=== PATIENT | male | born 1995 | race Asian ===

== ENCOUNTER 2016-12-25 16:46 | Emergency (ER) | payer OTHER ==
[2016-12-25 16:55] VITALS: BP 109/66; PULSE 57; RESP 16; TEMP 98.1; O2SAT 100
--- NOTE | 2016-12-25 17:04 | EDPHY ---
H & P Time Seen by Provider: 12/25/16 16:55 HPI/ROS: CHIEF COMPLAINT: Odontalgia HISTORY OF PRESENT ILLNESS: 21-year-old immunocompetent male complaining of right mandibular molar pain and mandibular swelling since this morning. No fever or chills. No trismus or drooling. No hot potato voice. No nuchal rigidity. No floor of mouth pain PHYSICAL EXAM (Prior to examination, patient consented to physical exam, hands were washed and my usual and customary physical exam procedures followed) 1) GENERAL: Well-developed, well-nourished, alert and oriented. Appears to be in no acute distress. 2) HEAD: Normocephalic 3) HEENT: sclera anicteric. There is minimally appreciable soft tissue swelling right mandibular region. Tooth 29 is tender to percussion. There is no evidence of periapical abscess. Floor of mouth soft with no evidence of Lev's angina. Submandibular and submental spaces are soft. 4) LUNGS: Breathing comfortably. Smoking Status: Current every day smoker Constitutional: Initial Vital Signs Temperature (C) 36.7 C 12/25/16 16:50 Heart Rate 57 L 12/25/16 16:50 Respiratory Rate 16 12/25/16 16:50 Blood Pressure 109/66 12/25/16 16:50 O2 Sat (%) 100 12/25/16 16:50 O2 Delivery Mode Room Air Allergies/Adverse Reactions: No Known Allergies Allergy (Verified 12/25/16 16:52) Home Medications: Medication Instructions Recorded No Home Meds 04/30/15 Amoxicillin Trihydrate 500 mg PO Q8 7 Days 12/25/16 [Amoxicillin 500mg cap] Ibuprofen [Motrin (*)] 800 mg PO Q6 #15 tab 12/25/16 MDM/Departure - MDM ED Course/Re-evaluation: Patient has no evidence of Lev's angina or deep space infection. I do not think that imaging studies indicated. Recommend follow up with dentist and given referral information. Started on amoxicillin with usual and customary dental precautions instructions provided - Depart Disposition: Home, Routine, Self-Care Clinical Impression: Odontalgia Condition: Good Instructions: Toothache (ED) Additional Instructions: Return to the ER immediately if you cannot swallow, have drooling, fevers, neck stiffness, cannot open your jaw, or any other symptoms that concern you. Prescriptions: Amoxicillin Trihydrate [Amoxicillin 500mg cap] 500 mg PO Q8 7 Days Ibuprofen [Motrin (*)] 800 mg PO Q6 #15 tab Referrals: [facility] [Outside] - As per Instructions [facility] [Outside] - As per Instructions [facility] [Outside] - As per Instructions [facility] [Outside] - As per Instructions [facility] [Outside] - As per Instructions
== END 2016-12-25 17:20 | disposition home or self-care (01) ==
DX: K08.89 Other specified disorders of teeth and supporting structures (principal); F17.200 Nicotine dependence, unspecified, uncomplicated

== ENCOUNTER 2017-01-12 09:42 | Emergency (ER) | payer OTHER ==
[2017-01-12 09:46] VITALS: TEMP 97.9
--- NOTE | 2017-01-12 09:48 | EDPHY ---
H & P Stated Complaint: tooth ache Time Seen by Provider: 01/12/17 09:47 HPI/ROS: CHIEF COMPLAINT: [ ] HISTORY OF PRESENT ILLNESS: [Need 4: Location, Duration, Severity, Quality, Context, Timing Modifying Factors, Associated S&S] REVIEW OF SYSTEMS: A comprehensive 10 point review of systems is otherwise negative aside from elements mentioned in the history of present illness. Source: Patient - Personal History Current Tetanus/Diphtheria Vaccine: Yes Current Tetanus Diphtheria and Acellular Pertussis (TDAP): Yes - Medical/Surgical History Hx Asthma: No Hx Chronic Respiratory Disease: No Hx Diabetes: No Hx Cardiac Disease: No Hx Renal Disease: No Hx Cirrhosis: No Hx Alcoholism: No Hx HIV/AIDS: No Hx Splenectomy or Spleen Trauma: No Other PMH: tonsilectomy - Social History Smoking Status: Current every day smoker - Physical Exam Exam: General Appearance: [Alert, no distress] Eyes: [Pupils equal and round no pallor or injection] ENT, Mouth: [Mucous membranes moist] Respiratory: [There are no retractions, lungs are clear to auscultation] Cardiovascular: [Regular rate and rhythm] Gastrointestinal: [Abdomen is soft and nontender, no masses, bowel sounds normal] Neurological: [A&O, normal motor function, normal sensory exam, normal cranial nerves] Skin: [Warm and dry, no rashes] Musculoskeletal: [Neck is supple nontender] Extremities: [symmetrical, full range of motion] Psychiatric: [Patient is oriented X 3, there is no agitation] Constitutional: Initial Vital Signs Temperature (C) 36.6 C 01/12/17 09:45 Heart Rate 62 01/12/17 09:45 Respiratory Rate 14 01/12/17 09:45 Blood Pressure 129/63 H 01/12/17 09:45 O2 Sat (%) 97 01/12/17 09:45 O2 Delivery Mode Room Air Allergies/Adverse Reactions: No Known Allergies Allergy (Verified 12/25/16 16:52) Home Medications: Medication Instructions Recorded No Home Meds 04/30/15 Amoxicillin Trihydrate 500 mg PO Q8 7 Days 12/25/16 [Amoxicillin 500mg cap] Ibuprofen [Motrin (*)] 800 mg PO Q6 #15 tab 12/25/16 Departure - Departure Referrals: NONE *PRIMARY CARE P,. [Primary Care Provider] - As per Instructions
--- NOTE | 2017-01-12 09:57 | EDPHY ---
H & P Stated Complaint: tooth ache Time Seen by Provider: 01/12/17 09:47 HPI/ROS: CHIEF COMPLAINT: Dental pain HISTORY OF PRESENT ILLNESS: The patient presents to the ED with complaints of recurrent dental pain. The patient was seen in the emergency department approximately 1 month ago with similar complaints. He has had a temporary filling placed on his #29 tooth for several months. He is not seen a dentist for follow-up. The patient denies fever, trismus or additional complaints. REVIEW OF SYSTEMS: A comprehensive 10 point review of systems is otherwise negative aside from elements mentioned in the history of present illness. Source: Patient Exam Limitations: No limitations - Personal History Current Tetanus/Diphtheria Vaccine: Yes Current Tetanus Diphtheria and Acellular Pertussis (TDAP): Yes - Medical/Surgical History Hx Asthma: No Hx Chronic Respiratory Disease: No Hx Diabetes: No Hx Cardiac Disease: No Hx Renal Disease: No Hx Cirrhosis: No Hx Alcoholism: No Hx HIV/AIDS: No Hx Splenectomy or Spleen Trauma: No Other PMH: tonsilectomy - Social History Smoking Status: Current every day smoker - Physical Exam Exam: General: No acute distress Head: Normocephalic atraumatic ENT: Temporary filling on the #29 tooth. No evidence of trismus, apical abscess, submandibular swelling or additional significant intraoral infection Neck: No lymphadenopathy Lungs: Clear to auscultation Constitutional: Initial Vital Signs Temperature (C) 36.6 C 01/12/17 09:45 Heart Rate 62 01/12/17 09:45 Respiratory Rate 14 01/12/17 09:45 Blood Pressure 129/63 H 01/12/17 09:45 O2 Sat (%) 97 01/12/17 09:45 O2 Delivery Mode Room Air Allergies/Adverse Reactions: No Known Allergies Allergy (Verified 12/25/16 16:52) Home Medications: Medication Instructions Recorded No Home Meds 04/30/15 Amoxicillin Trihydrate 500 mg PO Q8 7 Days 12/25/16 [Amoxicillin 500mg cap] Ibuprofen [Motrin (*)] 800 mg PO Q6 #15 tab 12/25/16 Amoxicillin Trihydrate 500 mg PO Q8 #21 cap 01/12/17 [Amoxicillin] Ibuprofen [Motrin (*)] 600 mg PO QID PRN #30 tab 01/12/17 Medical Decision Making ED Course/Re-evaluation: The patient presents to the ED with persistent dental pain. He will be provided a prescription for ibuprofen and amoxicillin. The patient is advised to follow up with a dentist on Friday for further evaluation Departure - Departure Disposition: Home, Routine, Self-Care Clinical Impression: Pain, dental Condition: Good Instructions: Toothache (ED) Additional Instructions: 1. Ibuprofen as needed for pain. 2. Take antibiotics as directed. 3. Please follow up with a dentist on Friday. Referrals: [facility] [Outside] - As per Instructions
[2017-01-12 10:06] VITALS: BP 132/70; PULSE 86; RESP 16; O2SAT 96
== END 2017-01-12 10:01 | disposition home or self-care (01) ==
DX: K08.89 Other specified disorders of teeth and supporting structures (principal); F17.200 Nicotine dependence, unspecified, uncomplicated

== ENCOUNTER 2017-10-27 14:39 | Emergency (ER) | payer OTHER ==
[2017-10-27 14:46] VITALS: TEMP 98.2
--- NOTE | 2017-10-27 15:03 | EDPHY ---
General Time Seen by Provider: 10/27/17 15:03 Narrative: CHIEF COMPLAINT: Foot pain HISTORY OF PRESENT ILLNESS: Patient complains of left ankle pain status post injury. This occurred on Friday while dancing. He said he landed awkwardly, rolling his ankle into inversion. Sudden onset of pain over the outside of the left ankle and foot. No tenderness of the heel. No tenderness of the knee. It is minimal at rest. Worse when he attempts to bear weight but he is able to do so. No numbness or tingling. No radiating pain. No other associated complaints or modifying factors. REVIEW OF SYSTEMS: Ten systems reviewed and are negative unless otherwise noted in the HPI PCP: None SPECIALISTS: None PAST MEDICAL HISTORY: ADD PAST SURGICAL HISTORY: No recent surgeries SOCIAL HISTORY: Nonsmoker. Lives and attends school here locally. Originally from [facility] FAMILY HISTORY: Noncontributory EXAMINATION General Appearance: Alert, no distress Head: normocephalic, atraumatic Cardiovascular: Regular rate. Symmetric DP and PT pulses 2+. Neurological: A&O, nonfocal, antalgic but steady gait. Strength of the ankles symmetric. Normal proprioception left great toe. No footdrop on the left. Skin: Warm and dry, no rash. No petechiae or purpura. No ecchymosis of the left ankle and foot Extremities: Tenderness of the left lateral malleolus and left proximal midfoot. There is no tenderness of the base of the 5th metatarsal. No tenderness of the left calcaneus with from palpation. No tenderness of the left proximal fibula. Range of motion of the ankles symmetric. Neurovascular intact distal to left ankle pain Psychiatric: Mood and affect normal DIFFERENTIAL DIAGNOSES: Including but not limited to sprain, strain, fracture, dislocation, subluxation MDM: 3:05 p.m. Acute injury to the left ankle on Friday. This was an inversion injury. Minimal bony tenderness on exam. There is no tenderness of the calcaneus. There is no tenderness of the proximal fibula. He is neurovascular intact. X-ray pending. 3:15 p.m. X-ray as read by me reveals no acute abnormalities. Suspect ankle sprain. He is able to walk on this with minimal difficulty. He has mild pain with. I will place him in an air splint. Discharged home with instructions to ice and elevate often. Instructions for ibuprofen every 6 hr as documented. I provided the on-call orthopedist from to follow up with his pain does not resolve over the next few days. He has ED precautions for any worsening pain, numbness, tingling. He is comfortable with this plan and discharged home stable condition 3:25 p.m. X-ray has been read as negative by radiologist SUPERVISION: This patient was independently evaluated without direct involvement of or examination by the attending physician. - Diagnostics Imaging Results: Imaging Impressions Ankle X-Ray 10/27/17 14:47 Impression: Negative left ankle series. - History Smoking Status: Current every day smoker - Objective Vital Signs: Initial Vital Signs Temperature (C) 98.2 F 10/27/17 14:45 Heart Rate 56 L 10/27/17 14:45 Respiratory Rate 16 10/27/17 14:45 Blood Pressure 114/80 10/27/17 14:45 O2 Sat (%) 98 10/27/17 14:45 O2 Delivery Mode Room Air Allergies/Adverse Reactions: No Known Allergies Allergy (Verified 10/27/17 14:44) Home Medications: Medication Instructions Recorded Adderall 10 MG (*) 10/27/17 Departure - Departure Disposition: Home, Routine, Self-Care Clinical Impression: Ankle sprain Qualifiers: Encounter type: initial encounter Involved ligament of ankle: unspecified ligament Laterality: left Qualified Code(s): S93.402A - Sprain of unspecified ligament of left ankle, initial encounter Condition: Good Instructions: Ankle Sprain (ED), Ankle Stirrup Splint (ED) Additional Instructions: 1. Ice and elevate the extremities often 2. Ibuprofen 600 mg every 6-8 hours as needed 3. Contact the on-call orthopedist as provided for definitive care later this week 4. ED precautions as discussed 5. Weightbearing as tolerated, advancing slowly as tolerated Referrals: Mary Kendall MD [Medical Doctor] - As per Instructions Stand Alone Forms: School Excuse
[2017-10-27 15:25] VITALS: BP 118/78; PULSE 78; RESP 18; O2SAT 97
== END 2017-10-27 15:25 | disposition home or self-care (01) ==
DX: S93.402A Sprain of unspecified ligament of left ankle, initial encounter (principal); X50.9XXA Other and unspecified overexertion or strenuous movements or postures, initial encounter; Y99.8 Other external cause status; Y93.41 Activity, dancing

== ENCOUNTER 2017-12-23 12:53 | Emergency (ER) | payer OTHER ==
--- NOTE | 2017-12-23 14:23 | EDPHY ---
H & P Time Seen by Provider: 12/23/17 13:51 HPI/ROS: CHIEF COMPLAINT: Sore throat x2 days HISTORY OF PRESENT ILLNESS: 22-year-old immunocompetent male complaining of sore throat, flu-like symptoms, fever, for the past 2 days. No change in voice. No cough. No abdominal pain. No chest pain. No dyspnea. No testicular pain. No urinary abnormality. PRIMARY CARE PROVIDER: REVIEW OF SYSTEMS: A ten point review of systems was performed and is negative with the exception of the items mentioned in the HPI PAST MEDICAL & SURGICAL HISTORY: No pertinent medical or surgical history SOCIAL HISTORY: Nonsmoker PHYSICAL EXAM (Prior to examination, patient consented to physical exam, hands were washed and my usual and customary physical exam procedures followed) 1) GENERAL: Well-developed, well-nourished, alert and oriented. Appears to be in no acute distress. 2) HEAD: Normocephalic, atraumatic 3) HEENT: Pupils equal, round, reactive to light bilaterally. Sclera anicteric. Oropharynx: Bilateral tonsils are symmetrically enlarged with white exudate. No trismus, no drooling, no hot potato voice, note Ears bilaterally with normal tympanic membranes. 4) NECK: Full range of motion, no meningeal signs. Positive adenopathy 5) LUNGS: Clear auscultation bilaterally, no wheezes, no rhonchi, no retractions. 6) HEART: Regular rate and rhythm, no murmur, no heave, no gallop. 7) ABDOMEN: No guarding, no rebound, no focal tenderness, negative McBurney's, negative Higgins's, negative Rovsing's, negative peritoneal sign, 8) MUSCULOSKELETAL: Moving all extremities, no focal areas of tenderness, no obvious trauma. No peripheral edema or discoloration. 9) BACK: No CVA tenderness, no midline vertebral tenderness, no fluctuance, no step-off, no obvious trauma, no visual or palpable abnormality. 10) SKIN: No rash, no petechiae. 11) Psychiatric: Patient is oriented X 3, there is no agitation. DIFFERENTIAL DIAGNOSIS: In no particular order including but not limited to strep pharyngitis, peritonsillar abscess, meningitis, mononucleosis, viral pharyngitis Smoking Status: Current every day smoker Constitutional: Initial Vital Signs Temperature (C) 36.6 C 12/23/17 13:05 Heart Rate 73 12/23/17 13:05 Respiratory Rate 16 12/23/17 13:05 Blood Pressure 122/86 H 12/23/17 13:05 O2 Sat (%) 97 12/23/17 13:05 O2 Delivery Mode Room Air Allergies/Adverse Reactions: No Known Allergies Allergy (Verified 12/23/17 13:05) Home Medications: Medication Instructions Recorded Adderall 10 MG (*) 10/27/17 Penicillin V Potassium [Pen Vk] 500 mg PO Q6 10 Days tab 12/23/17 MDM/Departure - MDM ED Course/Re-evaluation: High clinical suspicion for strep pharyngitis. Although the patient is noted to have a negative rapid strep screen performed by the triage nurse, I have recommended empiric treatment based on his signs and symptoms. Treatment will be Pen-VK. Doubt meningitis. Doubt peritonsillar abscess. Doubt retropharyngeal abscess or phlegmon. He feels comfortable being discharged. Usual and customary discharge precautions and instructions provided. Care of patient under supervision of secondary supervising physician Dr Chahal . - Depart Disposition: Home, Routine, Self-Care Clinical Impression: Strep pharyngitis Condition: Good Instructions: Pharyngitis (ED) Additional Instructions: Return to the ER immediately if you cannot swallow, have drooling, fevers, neck stiffness, cannot open your jaw, or any other symptoms that concern you. Prescriptions: Penicillin V Potassium [Pen Vk] 500 mg PO Q6 10 Days tab Referrals: RIYA Garay. [Clinic] - 2-3 days, call for appt.
[2017-12-23 14:31] VITALS: BP 125/78
== END 2017-12-23 14:30 | disposition home or self-care (01) ==
DX: J02.0 Streptococcal pharyngitis (principal); F17.200 Nicotine dependence, unspecified, uncomplicated

== ENCOUNTER 2017-12-24 23:32 | Emergency (ER) | payer OTHER ==
[2017-12-24] MEDS ORDERED: NS 1,000 ML IV ONE (23:40)
[2017-12-24] MEDS ORDERED: KETOROLAC 15 MG/1 ML SDV IVP ONE (23:40)
--- NOTE | 2017-12-24 23:47 | EDPHY ---
H & P Time Seen by Provider: 12/24/17 23:35 HPI/ROS: CHIEF COMPLAINT: "My throat still hurts" HISTORY OF PRESENT ILLNESS: 22-year-old immunocompetent male seen by myself in emergency department yesterday for complaints of 2 days of sore throat, diagnosed with strep pharyngitis based on his presenting signs and symptoms, namely bilaterally enlarged exudate of tonsils which were symmetrical with no signs of peritonsillar abscess. That time he was prescribed Pen-VK and Medrol Dosepak. He returns to the ER complaining of continued symptoms. They have not worsened. No change in voice. He is able tolerate oral intake albeit with pain. No Tylenol or acetaminophen use by patient. Continued intermittent fever and chills. Continued adenopathy. REVIEW OF SYSTEMS: A ten point review of systems was performed and is negative with the exception of the items mentioned in the HPI PAST MEDICAL & SURGICAL HISTORY: No pertinent medical or surgical history SOCIAL HISTORY: student PHYSICAL EXAM (Prior to examination, patient consented to physical exam, hands were washed and my usual and customary physical exam procedures followed) 1) GENERAL: Well-developed, well-nourished, alert and oriented. Appears to be in no acute distress. 2) HEAD: Normocephalic, atraumatic 3) HEENT: Pupils equal, round, reactive to light bilaterally. Sclera anicteric. Oropharynx: Bilaterally enlarged, exudate of tonsils with no pointing of the uvula, no signs of peritonsillar abscess, no hot potato voice, no trismus no drooling. Dry mucous membranes. Ears bilaterally with normal tympanic membranes. 4) NECK: Full range of motion, no meningeal signs. Positive submandibular adenopathy left greater than right, tender. 5) LUNGS: Clear auscultation bilaterally, no wheezes, no rhonchi, no retractions. 6) HEART: Regular rate and rhythm, no murmur, no heave, no gallop. 7) ABDOMEN: No guarding, no rebound, no focal tenderness, negative McBurney's, negative Higgins's, negative Rovsing's, negative peritoneal sign, no splenomegaly no left upper quadrant or left flank pain 8) MUSCULOSKELETAL: Moving all extremities, no focal areas of tenderness, no obvious trauma. No peripheral edema or discoloration. 9) BACK: No CVA tenderness, no midline vertebral tenderness, no fluctuance, no step-off, no obvious trauma, no visual or palpable abnormality. 10) SKIN: No rash, no petechiae. 11) Psychiatric: Patient is oriented X 3, there is no agitation. DIFFERENTIAL DIAGNOSIS: In no particular order including but not limited to peritonsillar abscess, retropharyngeal abscess, meningitis, epiglottitis - Medical/Surgical History Hx Asthma: No Hx Chronic Respiratory Disease: No Hx Diabetes: No Hx Cardiac Disease: No Hx Renal Disease: No Hx Cirrhosis: No Hx Alcoholism: No Hx HIV/AIDS: No Hx Splenectomy or Spleen Trauma: No Other PMH: tonsilectomy - Social History Smoking Status: Current every day smoker Constitutional: Initial Vital Signs Temperature (C) 36.7 C 12/24/17 23:40 Heart Rate 81 12/24/17 23:40 Respiratory Rate 16 12/24/17 23:40 Blood Pressure 131/70 H 12/24/17 23:40 O2 Sat (%) 96 12/24/17 23:40 O2 Delivery Mode Room Air Allergies/Adverse Reactions: No Known Allergies Allergy (Verified 12/24/17 23:42) Home Medications: Medication Instructions Recorded Adderall 10 MG (*) 10/27/17 Penicillin V Potassium [Pen Vk] 500 mg PO Q6 10 Days tab 12/23/17 Medical Decision Making ED Course/Re-evaluation: 11:47 p.m.: I have reviewed this patient's old medical records and familiar with this case. At this time I think that peritonsillar abscess or deep space infection is less than likely in this patient. I will administer IV hydration, IV Toradol, obtain Monospot testing and re-evaluate. 12:31 a.m.: Re-evaluation after IV fluids 1 L and IV Toradol. He is feeling "much better". Discussed his negative Monospot. Doubt meningitis. Doubt deep space infection. Plan will be discharge in the emergency department with usual and customary ENT precautions instructions. He feels comfortable being discharged. Recommend continue taking his medications as prescribed and also stressed the importance of supportive care in the form of Tylenol and Motrin and hydration. Care of patient under supervision of secondary supervising physician Dr Lombardo . - Data Points Laboratory Results: 12/24/17 23:50 Monoscreen NEGATIVE (NEGATIVE) Medications Given: Discontinued Medications Sodium Chloride (Ns) 1,000 mls @ 0 mls/hr IV ONCE ONE PRN Reason: Wide Open Stop: 12/24/17 23:41 Last Admin: 12/24/17 23:49 Dose: 1,000 mls Ketorolac Tromethamine (Toradol) 15 mg IVP EDNOW ONE Stop: 12/24/17 23:41 Last Admin: 12/24/17 23:50 Dose: 15 mg Departure - Departure Disposition: Home, Routine, Self-Care Clinical Impression: Strep pharyngitis Condition: Good Instructions: Strep Throat (ED) Additional Instructions: Keep taking your prescribed medications as directed. Return to the ER immediately if you cannot swallow, have drooling, fevers, neck stiffness, cannot open your jaw, or any other symptoms that concern you. Adult Pain & Fever Control: We recommend Acetaminophen (Tylenol) and Ibuprofen (Motrin,Advil) for pain and fever control. When fever is high or pain severe, both drugs can be used at the same time, but at different intervals. Please note the time differences. Your dose is: Acetaminophen 650mg every 4 to 6 hours Ibuprofen 600mg every 6 hours with food OR Note: do not take Acetaminophen with Hydrocodone (Vicodin, Lortab) or Oycodone (Percocet). These medications also contain Acetaminophen. No more than 3000mg of Acetaminophen should be taken in 24 hours (for an adult). Referrals: Cody Christine MD [Medical Doctor] - 1-2 days without fail
[2017-12-25 01:02] VITALS: BP 127/75
== END 2017-12-25 00:59 | disposition home or self-care (01) ==
DX: J02.0 Streptococcal pharyngitis (principal); F17.200 Nicotine dependence, unspecified, uncomplicated
CPT/HCPCS: 96374; J1885

== ENCOUNTER 2018-05-07 15:34 | Emergency (ER) | payer OTHER ==
[2018-05-07 16:11] VITALS: BP 135/85
--- NOTE | 2018-05-07 16:14 | EDPHY ---
H & P Stated Complaint: Completely stopped taking adderall 2 wks ago. Pt reports BROWN and lack f appt Time Seen by Provider: 05/07/18 15:59 HPI/ROS: CHIEF COMPLAINT: Morning headaches after stopping Adderall HISTORY OF PRESENT ILLNESS: 22-year-old male history of attention deficit hyperactivity disorder, on daily Adderall 40 mg once daily, ran out of his prescriptions 7 days ago. 3 days ago started waking with morning headaches which are alleviated with ibuprofen. Today is . He has an appointment with his psychiatrist on Friday however was unable to get prescription called in. These headaches are not thunderclap, not worst headache of her life, no nausea or vomiting, no photophobia, no gait instability, no slurred speech, no history of head injury, no history of neck pain or injury or manipulation, no suicidal homicidal ideation. No chest pain. No dyspnea. REVIEW OF SYSTEMS: [10 systems reviewed and negative with the exception of the elements mentioned in the history of present illness] [PAST MEDICAL & SURGICAL HISTORY:] Attention deficit hyperactivity disorder SOCIAL HISTORY:[ Student nonsmoker ] PHYSICAL EXAM (Prior to examination, patient consented to physical exam, hands were washed and my usual and customary physical exam procedures followed) 1) GENERAL: [Well-developed, well-nourished, alert and oriented. Appears to be in no acute distress.] 2) HEAD: [Normocephalic, atraumatic] 3) HEENT: [Pupils equal, round, reactive to light bilaterally. Sclera anicteric. ] [Nasopharynx, oropharynx, clear, no lesions. ][Moist][Dry] mucous membranes. [Ears bilaterally with normal tympanic membranes.] 4) NECK: [Full range of motion, no meningeal signs.] 5) LUNGS: [Clear auscultation bilaterally, no wheezes, no rhonchi, no retractions.] 6) HEART: [Regular rate and rhythm, no murmur, no heave, no gallop.] 7) ABDOMEN: [No guarding, no rebound, no focal tenderness, negative McBurney's, negative Higgins's, negative Rovsing's, negative peritoneal sign], 8) MUSCULOSKELETAL: [Moving all extremities, no focal areas of tenderness, no obvious trauma. No peripheral edema or discoloration.] 9) BACK: [No CVA tenderness, no midline vertebral tenderness, no fluctuance, no step-off, no obvious trauma, no visual or palpable abnormality.] 10) SKIN: [No rash, no petechiae.] [11) Psychiatric: Patient is oriented X 3, there is no agitation.] 12) NEURO: Awake, alert, and oriented to person, place and time. Answers questions appropriately. There were no obvious focal neurologic abnormalities. No cerebellar dysfunction. Cranial nerves 2 through to 12 intact. Normal steady gait. Upper and lower extremities bilaterally with strength 5 / 5, reflexes 2+. DIFFERENTIAL DIAGNOSIS: [ In no particular order, including but not limited to subarachnoid hemorrhage, migraine headache, tension headache and infectious causes such as meningitis, pharyngitis and sinusitis. The patient understands that this diagnosis is provisional and can never be 100% accurate. Usual and customary warnings were given concerning the clinical impression and all the patient's questions were answered. The patient was instructed to return to the emergency department should her symptoms worsen or return, or develop any new symptoms, otherwise to followup as directed in discharge instructions. This is a partial list of diagnoses considered. These considerations are based on history, physical exam, past history and reassessment.] - Personal History Current Tetanus/Diphtheria Vaccine: Yes Current Tetanus Diphtheria and Acellular Pertussis (TDAP): Yes - Medical/Surgical History Hx Asthma: No Hx Chronic Respiratory Disease: No Hx Diabetes: No Hx Cardiac Disease: No Hx Renal Disease: No Hx Cirrhosis: No Hx Alcoholism: No Hx HIV/AIDS: No Hx Splenectomy or Spleen Trauma: No Other PMH: tonsillectomy - Social History Smoking Status: Current every day smoker Constitutional: Initial Vital Signs Temperature (C) 36.8 C 05/07/18 15:34 Heart Rate 79 05/07/18 15:34 Respiratory Rate 16 05/07/18 15:34 Blood Pressure 149/90 H 05/07/18 15:34 O2 Sat (%) 97 05/07/18 15:34 O2 Delivery Mode Room Air Allergies/Adverse Reactions: No Known Allergies Allergy (Verified 12/24/17 23:42) Home Medications: Medication Instructions Recorded Amphet Asp and D/Amphet [Adderall 40 mg PO DAILY 5 Days tab 05/07/18 20 mg (*)] Medical Decision Making ED Course/Re-evaluation: 4:12 p.m.: This patient has a nonfocal neurologic examination. At this time I do not think that diagnostic studies or imaging studies are indicated. I discussed offering him a bridge prescription for the next 5 days for Adderall until he can see his psychiatrist on Friday (today is ). Patient is agreeable with this. Usual and customary headache precautions instructions provided. I saw this patient independently based on established practice protocols. Care of patient under supervision of secondary supervising physician Dr Hodge. Departure - Departure Disposition: Home, Routine, Self-Care Clinical Impression: Headache Qualifiers: Headache type: unspecified Headache chronicity pattern: acute headache Intractability: not intractable Qualified Code(s): R51 - Headache Condition: Good Instructions: Acute Headache (ED), Medicine Refill (ED) Additional Instructions: THANK YOU FOR YOUR VISIT TO OUR EMERGENCY DEPARTMENT (ED). YOU WERE SEEN TODAY BECAUSE OF A HEADACHE. YOU MAY HAVE HAD LAB TESTS, A CT SCAN, MRI OR EVEN A LUMBAR PUNCTURE (COMMONLY REFERRED TO A SPINAL TAP). WE CANNOT ALWAYS FIND THE EXACT CAUSE OF YOUR SYMPTOMS DURING YOUR VISIT TO THE ED. PLEASE FOLLOW UP WITH YOUR DOCTOR WITHIN 24 HOURS TO BE RECHECKED. RETURN TO THE ED IMMEDIATELY IF YOUR HEADACHE WORSENS, IF YOU DEVELOP A FEVER, NECK PAIN OR NECK STIFFNESS, OR IF YOU BECOME CONFUSED OR ABNORMALLY DROWSY. Referrals: Follow-up, with your psychiatrist on Friday [Other] - As per Instructions Prescriptions: Amphet Asp and D/Amphet [Adderall 20 mg (*)] 40 mg PO DAILY 5 Days tab
== END 2018-05-07 16:28 | disposition home or self-care (01) ==
DX: R51 Headache (principal); F90.9 Attention-deficit hyperactivity disorder, unspecified type; T43 Poisoning by, adverse effect of and underdosing of psychotropic drugs, not elsewhere classified

== ENCOUNTER 2018-05-26 16:31 | Emergency (ER) | payer OTHER ==
[2018-05-26 16:39] VITALS: BP 110/69
--- NOTE | 2018-05-26 16:41 | EDPHY ---
H & P Stated Complaint: cough, ST Time Seen by Provider: 05/26/18 16:41 HPI/ROS: HPI: This is a 22-year-old male who presents with Chief Complaint: Cough, sore throat Location: Throat, chest Quality: Cough and sore Duration: 2 days Signs and Symptoms: no fever, no nausea, no vomiting, no diarrhea, no urinary symptoms, no chest pain, no shortness of breath, no wheezing, + nonproductive cough, + sore throat, no neck stiffness, no joint pain, no swollen glands, no ear pain, no rash, + runny nose, + nasal congestion Timing: Acute, constant Severity: Mild Context: Patient is a student at [employer], presents with sudden onset of sore throat and nonproductive cough accompanied by fatigue for the last 2 days. He has been drinking hot tea. He is not taking any over-the- counter medications. He has a history of tonsillectomy. He is eating and drinking fluids without difficulty but he does report decreased appetite. Modifying Factors: Drinking hot tea Comment: ROS: A comprehensive 10 system review of systems is otherwise negative aside from elements mentioned in the history of present illness. MEDICAL/SURGICAL/SOCIAL HISTORY: Medical history: Generally healthy. Does not take any regular medications. Surgical history: Tonsillectomy Social history: Student at [employer]. Family history noncontributory. CONSTITUTIONAL: Extremely well-appearing [place] young adult male, awake and alert , no obvious distress HEENT: Atraumatic and normocephalic, PERRL, EOMI. Nares patent; no rhinorrhea; no nasal mucosal edema. No sinus tenderness. Tympanic membranes clear. Oropharynx clear, no tonsillar hypertrophy, uvula midline, no exudate and moist pink mucosa. Airway patent. No lymphadenopathy. No meningismus. Cardiovascular: Normal S1/S2, regular rate, regular rhythm, without murmur rub or gallop. PULMONARY/CHEST: Symmetrical and nontender. Clear to auscultation bilaterally. Good air movement. No accessory muscle usage. ABDOMEN: Soft, nondistended, nontender, no rebound, no guarding, no peritoneal signs, no masses or organomegaly. No CVAT. EXTREMITIES: 2/2 pulses, strength 5/5, no deformities, no clubbing, no cyanosis or edema. NEUROLOGICAL: no focal neuro deficits. GCS 15. SKIN: Warm and dry, no erythema. no rash. Good capillary refill. Source: Patient Exam Limitations: No limitations - Personal History Current Tetanus/Diphtheria Vaccine: Yes Current Tetanus Diphtheria and Acellular Pertussis (TDAP): Yes - Medical/Surgical History Hx Asthma: No Hx Chronic Respiratory Disease: No Hx Diabetes: No Hx Cardiac Disease: No Hx Renal Disease: No Hx Cirrhosis: No Hx Alcoholism: No Hx HIV/AIDS: No Hx Splenectomy or Spleen Trauma: No Other PMH: tonsillectomy - Social History Smoking Status: Current every day smoker Constitutional: Initial Vital Signs Temperature (C) 36.7 C 05/26/18 16:37 Heart Rate 64 05/26/18 16:37 Respiratory Rate 16 05/26/18 16:37 Blood Pressure 110/69 05/26/18 16:37 O2 Sat (%) 99 05/26/18 16:37 O2 Delivery Mode Room Air Allergies/Adverse Reactions: No Known Allergies Allergy (Verified 05/26/18 16:37) Home Medications: Medication Instructions Recorded Amphet Asp and D/Amphet [Adderall 40 mg PO DAILY 5 Days tab 05/07/18 20 mg (*)] Benzonatate [Tessalon Pearles (RX)] 100 mg PO Q6 PRN #12 cap 05/26/18 Dexamethasone [Decadron 2 MG (*)] 10 mg PO ONCE #5 tab 05/26/18 Ibuprofen 800 mg PO Q8 PRN #15 tablet 05/26/18 Medical Decision Making ED Course/Re-evaluation: Vital signs reviewed and stable upon arrival. Strep test ordered and negative Modified Centor Score= 1; no abx indicated No indication for influenza test. No signs of tonsillar abscess/meningitis/dehydration/bronchitis Patient given a prescription for Decadron 10 mg x1, Tessalon Perles, and ibuprofen 100 mg School note provided per request Advised supportive care This patient was seen under the supervision of my secondary supervising physician. I evaluated care for this patient independently. Discussed this patient with Dr. Zamora. Differential Diagnosis: Adult fever including but not limited to viral syndromes including influenza, bronchitis, strep pharyngitis, pneumonia and sepsis. - Data Points Laboratory Results: 05/26/18 05/26/18 Unknown 16:47 Group A Strep Screen NEGATIVE (NEGATIVE) Group A Strep DNA NEGATIVE (NEGATIVE) Departure - Departure Disposition: Home, Routine, Self-Care Clinical Impression: Viral upper respiratory infection Condition: Good Instructions: Upper Respiratory Infection (ED) Additional Instructions: Rest as much as possible until you are feeling better. Consume a minimum of 8-10 glasses of water or electrolyte fluid replacement drinks that include Gatorade, Powerade, Pedialyte. Eat a bland diet for the next 48 hours and then slowly advance as tolerated. Take Decadron as directed x1. Use ibuprofen 800 mg every 8 hr as needed for pain or fever. Use Tessalon Perles every 6 hr as needed for cough. Return to the ER immediately if you experience fevers/chills, shortness of breath, abdominal pain, inability to tolerate oral intake, or any other symptoms that concern you. Referrals: [facility],. [Clinic] - As per Instructions Stand Alone Forms: School Excuse Prescriptions: Benzonatate [Tessalon Pearles (RX)] 100 mg PO Q6 PRN #12 cap PRN Reason: Cough, Moderate Dexamethasone [Decadron 2 MG (*)] 10 mg PO ONCE #5 tab Ibuprofen 800 mg PO Q8 PRN #15 tablet PRN Reason: Pain, Moderate
== END 2018-05-26 16:52 | disposition home or self-care (01) ==
DX: J06.9 Acute upper respiratory infection, unspecified (principal); F17.200 Nicotine dependence, unspecified, uncomplicated; Z90.89 Acquired absence of other organs

== ENCOUNTER 2018-08-03 03:30 | Emergency (ER) | payer OTHER ==
[2018-08-03 03:36] VITALS: BP 121/75
--- NOTE | 2018-08-03 03:37 | EDPHY ---
H & P Time Seen by Provider: 08/03/18 03:36 HPI/ROS: HPI CHIEF COMPLAINT: Left posterior molar dental pain. HISTORY OF PRESENT ILLNESS: 22-year-old male, presents emergency room left posterior lower molar dental pain. It Is decaying tooth. This is been a known issue for the patient. Presents emergency room with intermittent pain of this left posterior molar. Patient is started hurting him over the past 24 hr getting worse and he is not sleeping. No fever. No trouble swallowing. No jaw line swelling. Past Medical History: Denies significant medical history Past Surgical History: Denies significant surgical history Social History: Denies drugs or alcohol. Does smoke tobacco and babies. Family History: Noncontributory ROS REVIEW OF SYSTEMS: 10 Systems were reviewed and negative with the exception of the elements mentioned in the history of present illness. Exam Constitutional triage nursing summary reviewed, vital signs reviewed, awake/ alert. Eyes normal conjunctivae and sclera, EOMI, PERRLA. HENT oropharynx: Left posterior molar is decayed and eroded to the gumline. No gumline abscess. No signs of Lev's or ANUG. Uvula midline. No signs of abscess. No gumline abscess normal inspection, atraumatic, moist mucus membranes, no epistaxis, neck supple/ no meningismus, no raccoon eyes. Respiratory clear to auscultation bilaterally, normal breath sounds, no respiratory distress, no wheezing. Cardiovascular rate normal, regular rhythm, no murmur, no edema, distal pulses normal. Gastrointestinal soft, non-tender, no rebound, no guarding, normal bowel sounds, no distension, no pulsatile mass. Genitourinary no CVA tenderness. Musculoskeletal no midline vertebral tenderness, full range of motion, no calf swelling, no tenderness of extremities, no meningismus, good pulses, neurovascularly intact. Skin pink, warm, & dry, no rash, skin atraumatic. Neurologic awake, alert and oriented x 3, AAOx3, moves all 4 extremities equally, motor intact, sensory intact, CN II-XII intact, normal cerebellar, normal vision, normal speech. Psychiatric normal mood/affect. Heme/Lymph/Immune no lymphadenopathy. Differential Diagnosis: Includes but is not limited to in a particular order decaying tooth, dental caries, apical abscess Medical Decision Making: Plan for this patient pen VK, ibuprofen for pain control. I do recommend he follows up with dentist. Return precautions discussed the patient understands return emergency room if develops worsening pain, swelling questions or concerns. 1st dose of Pen-VK and ibuprofen given emergency room Prescription for pen VK and ibuprofen for home. Return precautions discussed. Source: Patient - Medical/Surgical History Hx Asthma: No Hx Chronic Respiratory Disease: No Hx Diabetes: No Hx Cardiac Disease: No Hx Renal Disease: No Hx Cirrhosis: No Hx Alcoholism: No Hx HIV/AIDS: No Hx Splenectomy or Spleen Trauma: No Other PMH: tonsillectomy - Social History Smoking Status: Current every day smoker Constitutional: Initial Vital Signs Temperature (C) 36.9 C 08/03/18 03:34 Heart Rate 106 H 08/03/18 03:34 Respiratory Rate 20 08/03/18 03:34 Blood Pressure 121/75 H 08/03/18 03:34 O2 Sat (%) 97 08/03/18 03:34 Allergies/Adverse Reactions: No Known Allergies Allergy (Verified 05/26/18 16:37) Home Medications: Medication Instructions Recorded Amphet Asp and D/Amphet [Adderall 40 mg PO DAILY 5 Days tab 05/07/18 20 mg (*)] Benzonatate [Tessalon Pearles (RX)] 100 mg PO Q6 PRN #12 cap 05/26/18 Dexamethasone [Decadron 2 MG (*)] 10 mg PO ONCE #5 tab 05/26/18 Ibuprofen 800 mg PO Q8 PRN #15 tablet 05/26/18 Ibuprofen [Motrin (*)] 800 mg PO Q6-8PRN #14 tab 08/03/18 Penicillin V Potassium [Penicillin 500 mg PO BID #14 tab 08/03/18 VK] Departure - Departure Disposition: Home, Routine, Self-Care Clinical Impression: Tooth pain Condition: Good Instructions: Toothache (ED) Referrals: [facility] [Outside] - As per Instructions [facility] [Outside] - As per Instructions [facility] [Outside] - As per Instructions [facility] [Outside] - As per Instructions [facility] [Outside] - As per Instructions Prescriptions: Ibuprofen [Motrin (*)] 800 mg PO Q6-8PRN #14 tab Penicillin V Potassium [Penicillin VK] 500 mg PO BID #14 tab
[2018-08-03] MEDS ORDERED: IBUPROFEN 800 MG TAB PO ONE (03:40)
[2018-08-03] MEDS ORDERED: PENICILLIN VK 500 MG TAB PO ONE (03:40)
== END 2018-08-03 03:57 | disposition home or self-care (01) ==
DX: K08.89 Other specified disorders of teeth and supporting structures (principal); K02.9 Dental caries, unspecified; F17.200 Nicotine dependence, unspecified, uncomplicated

== ENCOUNTER 2018-10-20 15:13 | Emergency (ER) | payer OTHER ==
[2018-10-20] MEDS ORDERED: IBUPROFEN 600 MG TAB PO ONE (16:46)
[2018-10-20 19:23] VITALS: BP 140/72
--- NOTE | 2018-10-20 19:28 | EDPHY ---
H & P Stated Complaint: cough, fever, sore throat, fatigue - Personal History Current Tetanus Diphtheria and Acellular Pertussis (TDAP): Yes - Medical/Surgical History Hx Asthma: No Hx Chronic Respiratory Disease: No Hx Diabetes: No Hx Cardiac Disease: No Hx Renal Disease: No Hx Cirrhosis: No Hx Alcoholism: No Hx HIV/AIDS: No Hx Splenectomy or Spleen Trauma: No Other PMH: tonsillectomy - Social History Smoking Status: Current every day smoker Time Seen by Provider: 10/20/18 19:05 HPI/ROS: CHIEF COMPLAINT: Cough congestion rhinorrhea x3 days HISTORY OF PRESENT ILLNESS: 23-year-old immunocompetent male with no seasonal influenza vaccination complaining of 3 days of cough, congestion, rhinorrhea. He has not taken [id number] remedies. Denies: Chest pain, abdominal pain , nausea, vomiting, nuchal rigidity, otalgia, rash, muscular weakness or flaccidity. PRIMARY CARE PROVIDER: REVIEW OF SYSTEMS: 10 systems reviewed and negative with the exception of the elements mentioned in the history of present illness PAST MEDICAL & SURGICAL HISTORY: no seasonal influenza vaccination SOCIAL HISTORY: Student PHYSICAL EXAM (Prior to examination, patient consented to physical exam, hands were washed and my usual and customary physical exam procedures followed) 1) GENERAL: Well-developed, well-nourished, alert and oriented. Appears to be in no acute distress. 2) HEAD: Normocephalic, atraumatic 3) HEENT: Pupils equal, round, reactive to light bilaterally. Sclera anicteric. Nasopharynx: Coryza, oropharynx, clear, no lesions. Moist Mucous membranes. No tonsillar enlargement or exudate Ears bilaterally with normal tympanic membranes. 4) NECK: Full range of motion, no meningeal signs. 5) LUNGS: Clear auscultation bilaterally, no wheezes, no rhonchi, no retractions. 6) HEART: Regular rate and rhythm, no murmur, no heave, no gallop. 7) ABDOMEN: No guarding, no rebound, no focal tenderness, negative McBurney's, negative Higgins's, negative Rovsing's, negative peritoneal sign, 8) MUSCULOSKELETAL: Moving all extremities, no focal areas of tenderness, no obvious trauma. No peripheral edema or discoloration. 9) BACK: No CVA tenderness, no midline vertebral tenderness, no fluctuance, no step-off, no obvious trauma, no visual or palpable abnormality. 10) SKIN: No rash, no petechiae. 11) Psychiatric: Patient is oriented X 3, there is no agitation. DIFFERENTIAL DIAGNOSIS: In no particular order including but not limited to bronchitis, pneumonia, influenza, viral URi (Chucky Galloway) Constitutional: Initial Vital Signs Temperature (C) 36.8 C 10/20/18 15:27 Heart Rate 63 10/20/18 15:27 Respiratory Rate 18 10/20/18 15:27 Blood Pressure 126/80 H 10/20/18 15:27 O2 Sat (%) 97 10/20/18 15:27 O2 Delivery Mode Room Air Allergies/Adverse Reactions: No Known Allergies Allergy (Verified 10/20/18 15:29) Home Medications: Medication Instructions Recorded NK [No Known Home Meds] 10/20/18 Medical Decision Making ED Course/Re-evaluation: 7:26 p.m.: Patient's symptoms are more than likely secondary to viral etiology. For these reasons, I do not feel antibiotics are currently indicated. In addition, I do not identify indication for chest x-ray as the patient's lungs are clear bilaterally, has a normal pulse ox, speaking full sentences, no signs of respiratory distress. The patient understands that this diagnosis is provisional and can never be 100% accurate. Usual and customary warnings were given concerning the clinical impression and all the patient's questions were answered. The patient was instructed to return to the emergency department should her symptoms worsen or return, or develop any new symptoms, otherwise to followup as directed in discharge instructions. Care of patient under supervision of secondary supervising physician Dr Ward . (Chucky Galloway) The patient was evaluated and managed by the physician conference assistant. I have reviewed this chart and I agree with the findings and plan of care as documented , as indicated by my signature. I am the secondary supervising physician. ( Irasema Ward) - Data Points Medications Given: Discontinued Medications Ibuprofen (Motrin) 600 mg PO EDNOW ONE Stop: 10/20/18 16:47 Last Admin: 10/20/18 16:51 Dose: 600 mg Departure - Departure Disposition: Home, Routine, Self-Care Clinical Impression: Upper respiratory infection Condition: Good Instructions: Upper Respiratory Infection (ED) Additional Instructions: You were examined in the emergency department today for upper respiratory infection (URI) like symptoms. While more URIs are caused by viral illnesses, we cannot always exclude the possibility of a bacterial infection that may require treatment with antibiotics. Return to the emergency department immediately for change in breathing habits, change in voice, change in swallowing habits, change in mental status, or any other symptoms that concern you. Adult Pain & Fever Control: We recommend Acetaminophen (Tylenol) and Ibuprofen (Motrin,Advil) for pain and fever control. When fever is high or pain severe, both drugs can be used at the same time, but at different intervals. Please note the time differences. Your dose is: Acetaminophen 650mg every 4 to 6 hours Ibuprofen 600mg every 6 hours with food OR Note: do not take Acetaminophen with Hydrocodone (Vicodin, Lortab) or Oycodone (Percocet). These medications also contain Acetaminophen. No more than 3000mg of Acetaminophen should be taken in 24 hours (for an adult). Referrals: [facility],. [Clinic] - 2-3 days, call for appt. Stand Alone Forms: School Excuse
== END 2018-10-20 19:45 | disposition home or self-care (01) ==
DX: J06.9 Acute upper respiratory infection, unspecified (principal)

== ENCOUNTER 2019-01-24 17:51 | Emergency (ER) | payer OTHER | END 2019-01-24 19:47 | disposition home or self-care (01) ==

== ENCOUNTER 2019-01-28 22:06 | Emergency (ER) | payer OTHER | END 2019-01-28 23:28 | disposition home or self-care (01) ==